=== PATIENT | male | born 1960 | race Caucasian/White ===

== ENCOUNTER 2018-05-24 09:34 | Inpatient (IN) ==
[2018-05-24 10:49] LABS: Baso # (Auto) 0.1 th/mm3 (0.0-0.2); Baso % (Auto) 0.8 % (0.0-2.0); Eos # (Auto) 0.2 th/mm3 (0.0-0.4); Eos % (Auto) 2.4 % (0.0-4.0); Hematocrit 43.5 % (39.0-51.0); Hemoglobin 14.8 gm/dL (13.0-17.0); Lymph # (Auto) 3.8 th/mm3 (1.0-4.8); Lymph % (Auto) 51.7 % (9.0-44.0); Mean Corpuscular HGB Conc 34.1 % (32.0-36.0); Mean Corpuscular Hemoglobin 31.8 pg (27.0-34.0); Mean Corpuscular Volume 93.1 fL (80.0-100.0); Mean Platelet Volume 8.5 fL (7.0-11.0); Mono # (Auto) 0.5 th/mm3 (0.0-0.9); Neut # (Auto) 2.8 th/mm3 (1.8-7.7); Neut % (Auto) 38.1 % (16.0-70.0); Platelet Count 91 th/mm3 (150-450); Red Blood Count 4.67 mil/mm3 (4.50-5.90); Red Cell Distribution Width 16.4 % (11.6-17.2); White Blood Count 7.3 th/mm3 (4.0-11.0)
--- NOTE | 2018-05-24 10:59 | ED ---
HPI General Chief Complaint: Psychiatric Symptoms Stated Complaint: psych eval Time Seen by Provider: 05/24/18 10:23 Source: patient Mode of arrival: ambulatory Limitations: altered mental status (INTOXICATED) History of Present Illness HPI Narrative: 57-year-old male presents to the emergency department under Balbuena act. According to the Balbuena act report the mother had advised that he woke up intoxicated stating that he did not want to live anymore and repeatedly stated he was going to commit suicide. On my examination the patient appears intoxicated. He states "Im an alcoholic." States his mother made the comments and he denies suicidal or homicidal ideations. Denies history of suicidal attempts. Denies auditory or visual hallucinations. There is a large bruise noted to his right upper arm and the patient does not know how he got it. Denies illicit drug use. Reports alcohol use daily. Reports tobacco use. Denies psychiatric history. Onset unknown. Duration most likely chronic. No known relieving or aggravating factors. No treatments tried. Symptoms are moderate to severe in severity. Says he has history of seizures related to alcohol withdrawal. Denies other significant past medical history. Says he has a primary care provider and does not know the name. Allergies to peanuts and phenobarbital. Has no other medical complaints. No other modifying factors or associated signs and symptoms. Related Data Home Medications Medication Instructions Recorded Confirmed buspirone 10 mg PO TID 05/24/18 05/24/18 desonide 1 applic TOPICAL DAILY 05/24/18 05/24/18 levetiracetam 750 mg PO BID 05/24/18 05/24/18 quetiapine 50 mg PO DAILY 05/24/18 05/24/18 sertraline 100 mg PO DAILY 05/24/18 05/24/18 Allergies Allergy/AdvReac Type Severity Reaction Status Date / Time ipratropium Allergy Severe Anaphylaxis Verified 05/24/18 11:06 phenobarbital Allergy Severe Anaphylaxis Verified 05/24/18 11:06 Review of Systems ROS: all other systems reviewed are negative [facility] Medical History Medical History Anxiety (Acute) COPD (chronic obstructive pulmonary disease) (Acute) Emphysema, unspecified (Acute) Social History Social History Substance History: No History of Abuse Second Hand Smoke Exposure: Yes Smoking Status: Current every day smoker Tobacco Type: Cigarettes How Often Do You Have a Drink Containing Alcohol: 4 or more times a week Recent Travel in [facility] within the Last 8 Weeks: No Recent Out of Country Travel within the Last 8 Weeks: No Immunization History Tetanus Immunization: Unsure Exam Narrative Exam Narrative: GENERAL: Well-nourished, well-developed male patient, in no acute distress; disheveled; appears intoxicated SKIN: Warm and dry. Large bruise noted to right bicep area; stage II-III. HEAD: Atraumatic. Normocephalic. EYES: Pupils equal and round. ENT: Mucosa pink and moist. NECK: Supple. Trachea midline. CARDIOVASCULAR: Regular rate and rhythm. No murmur appreciated. RESPIRATORY: No accessory muscle use. Clear to auscultation. Breath sounds equal bilaterally. GASTROINTESTINAL: Abdomen soft, non-tender, nondistended. Hepatic and splenic margins not palpable. Bowel sounds are active 4 quadrants. MUSCULOSKELETAL: No obvious deformities. No clubbing. No cyanosis. No edema. NEUROLOGICAL: Awake and alert. Oriented 2; self and president. No obvious cranial nerve deficits. Motor grossly within normal limits. Normal speech. Moves all extremities. 5/5 strength to all extremities. PSYCHIATRIC: No delusional thought processes. No hallucinations. Course Reevaluation(s) Reevaluation #1: I was notified by the nursing staff that the patient had a seizure. The nursing staff as overridden and had given him 2 mg of Ativan IV. Patient seizure had stopped. Patient is postictal. I reviewed the patient's chart. It appears that the patient has been here nearly 13 hours. His initial blood alcohol was 370. Patient has had a history of alcohol with alcohol withdrawal seizures. He is supposed to be on Keppra 750 mg twice daily. His evening dose of Keppra 750 mg has been ordered when he becomes more arousable. Patient is on a media monitor as well as O2. Time: 23:01 Initial Documented Vital Signs Temperature 98.1 F 05/24/18 09:52 Pulse Rate 119 H 05/24/18 09:52 Respiratory Rate 16 05/24/18 09:52 Blood Pressure 135/101 H 05/24/18 09:52 Pulse Oximetry 94 L 05/24/18 09:52 Last Documented Vital Signs Temperature 98.5 F 05/26/18 04:00 Pulse Rate 84 05/26/18 06:00 Respiratory Rate 20 05/26/18 06:00 Blood Pressure 158/77 H 05/26/18 06:00 Pulse Oximetry 96 05/26/18 06:00 Medical Decision Making MDM Narrative Medical decision making narrative: Patient presents under a Balbuena act. Physical examination and vital signs are essentially unremarkable. Patient has no medical complaints to report. Psych screen has been ordered. If the laboratory results are unremarkable, the patient will be medically cleared for psychiatric evaluation and disposition. 23:38 PM patient had a seizure episode in the emergency room. Most likely alcohol withdrawal seizure. CIWA protocol started., Patient was given Ativan. Patient will be admitted to the medical service with psychiatric consultation. Differential Diagnosis Differential Diagnosis: Alcohol induced mood disorder, alcohol abuse, alcohol intoxication, medical clearance for psychiatric evaluation Lab Data Lab results reviewed: Yes I reviewed the patient's lab results. Result diagrams: 05/24/18 10:00 05/24/18 10:00 Lab Results 05/24/18 05/24/18 05/24/18 Range/Units 10:00 10:00 10:00 WBC 7.3 (4.0-11.0) th/mm3 RBC 4.67 (4.50-5.90) mil/mm3 Hgb 14.8 (13.0-17.0) gm/dL Hct 43.5 (39.0-51.0) % MCV 93.1 (80.0-100.0) fL MCH 31.8 (27.0-34.0) pg MCHC 34.1 (32.0-36.0) % RDW 16.4 (11.6-17.2) % Plt Count 91 L (150-450) th/mm3 MPV 8.5 (7.0-11.0) fL Prelim Diff (Auto) Slide review pending Neut % (Auto) 38.1 (16.0-70.0) % Lymph % (Auto) 51.7 H (9.0-44.0) % [place] % (Auto) 7.0 (0.0-8.0) % Eos % (Auto) 2.4 (0.0-4.0) % Baso % (Auto) 0.8 (0.0-2.0) % Neut # (Auto) 2.8 (1.8-7.7) th/mm3 Lymph # (Auto) 3.8 (1.0-4.8) th/mm3 [place] # (Auto) 0.5 (0.0-0.9) th/mm3 Eos # (Auto) 0.2 (0.0-0.4) th/mm3 Baso # (Auto) 0.1 (0.0-0.2) th/mm3 WBC Differential . Diff Scan Auto diff confirmed Differential Comment . Platelet Estimate Low L (Normal) Platelet Morphology Enlarged H (Normal) Sodium 138 (136-145) meq/L Potassium 3.7 (3.5-5.1) meq/L Chloride 100 (98-107) meq/L Carbon Dioxide 22.4 (21.0-32.0) meq/L Anion Gap 16 H (5-15) meq/L BUN 9 (7-18) mg/dL Creatinine 0.73 (0.60-1.30) mg/dL Estimated GFR Greater than 89 (>89) mL/min Random Glucose 101 (74-106) mg/dL Calcium 9.0 (8.5-10.1) mg/dL Total Bilirubin 0.7 (0.2-1.0) mg/dL AST 267 H (15-37) U/L ALT 153 H (12-78) U/L Alkaline Phosphatase 94 (45-117) U/L Total Protein 9.3 H (6.4-8.2) g/dL Albumin 4.5 (3.4-5.0) g/dL TSH 1.110 (0.358-3.740) uIU/mL Nasal Screen MRSA (PCR) (Negative) Salicylates 5.7 (2.8-20.0) mg/dL Acetaminophen Less than 2.0 L (10.0-30.0) mcg/mL Serum Alcohol 370 H (0-5) mg/dL 05/25/18 Range/Units 02:00 WBC (4.0-11.0) th/mm3 RBC (4.50-5.90) mil/mm3 Hgb (13.0-17.0) gm/dL Hct (39.0-51.0) % MCV (80.0-100.0) fL MCH (27.0-34.0) pg MCHC (32.0-36.0) % RDW (11.6-17.2) % Plt Count (150-450) th/mm3 MPV (7.0-11.0) fL Prelim Diff (Auto) Neut % (Auto) (16.0-70.0) % Lymph % (Auto) (9.0-44.0) % [place] % (Auto) (0.0-8.0) % Eos % (Auto) (0.0-4.0) % Baso % (Auto) (0.0-2.0) % Neut # (Auto) (1.8-7.7) th/mm3 Lymph # (Auto) (1.0-4.8) th/mm3 [place] # (Auto) (0.0-0.9) th/mm3 Eos # (Auto) (0.0-0.4) th/mm3 Baso # (Auto) (0.0-0.2) th/mm3 WBC Differential Diff Scan Differential Comment Platelet Estimate (Normal) Platelet Morphology (Normal) Sodium (136-145) meq/L Potassium (3.5-5.1) meq/L Chloride (98-107) meq/L Carbon Dioxide (21.0-32.0) meq/L Anion Gap (5-15) meq/L BUN (7-18) mg/dL Creatinine (0.60-1.30) mg/dL Estimated GFR (>89) mL/min Random Glucose (74-106) mg/dL Calcium (8.5-10.1) mg/dL Total Bilirubin (0.2-1.0) mg/dL AST (15-37) U/L ALT (12-78) U/L Alkaline Phosphatase (45-117) U/L Total Protein (6.4-8.2) g/dL Albumin (3.4-5.0) g/dL TSH (0.358-3.740) uIU/mL Nasal Screen MRSA (PCR) Not detected (Negative) Salicylates (2.8-20.0) mg/dL Acetaminophen (10.0-30.0) mcg/mL Serum Alcohol (0-5) mg/dL Imaging Data Attestation: I personally reviewed and interpreted this imaging study as follows : Radiologist's impression: Head CT 05/24/18 10:33 CONCLUSION: 1. Right-sided shunt. 2. Encephalomalacia right temporal and parietal lobes. 3. No acute intracranial abnormality. . Discharge Plan Discharge Disposition Patient Disposition: 30 Still Patient Discharge Condition Condition: Stable Discharge Details Diagnosis: Seizure, Alcohol abuse Physicians Team ED Provider: Fidel Shields ED Midlevel Provider: Maryam Castillo Primary Care Provider: UNKNOWN, Attending Provider: Sal Valentin Other Providers: Richard Looney Status ED Status: Left Department Discharge Information Discharge Date/Time: 05/25/18 01:40
[2018-05-24 11:04] LABS: Albumin 4.5 g/dL (3.4-5.0); Anion Gap 16 meq/L (5-15); Blood Urea Nitrogen 9 mg/dL (7-18); Carbon Dioxide 22.4 meq/L (21.0-32.0); Chloride 100 meq/L (98-107); Glomerular Filtration Rate Greater Than 89 mL/min (>89); Glucose,Random 101 mg/dL (74-106); Potassium 3.7 meq/L (3.5-5.1); Sodium 138 meq/L (136-145)
[2018-05-24 11:05] LABS: Alanine Aminotransferase 153 U/L (12-78); Aspartate Aminotransferase 267 U/L (15-37)
--- NOTE | 2018-05-24 11:14 | CT ---
EXAM DATE: 05/24/2018 10:37 AM EDT AGE/SEX: 57 years / Male INDICATIONS: Altered mental status. CLINICAL DATA: This is the patient's initial encounter. Patient reports that signs and symptoms have been present for 1 day and indicates a pain score of Nonresponsive. MEDICAL/SURGICAL HISTORY: Chronic obstructive pulmonary disease. . Shunt RADIATION DOSE: 56.35 CTDI (mGy) COMPARISON: No prior exams available for comparison. TECHNIQUE: CT of the head without contrast. Using automated exposure control and adjustment of the mA and/or kV according to patient size, radiation dose was kept as low as reasonably achievable to ob tain optimal diagnostic quality images. DICOM format image data is available electronically for revi ew and comparison. FINDINGS: Cerebrum: Right-sided shunt coursing through the posterior lateral horn right lateral ventricle ekaterina cent to prominent cystic area. There is encephalomalacia in the right temporal and parietal lobes. dilatation of the posterior and temporal horns of the right lateral ventricle. No evidence of m idline shift, mass lesion, hemorrhage or acute infarction. No extraaxial fluid collections are seen. Posterior Fossa: The cerebellum and brainstem are intact. The 4th ventricle is midline. The cerebe llopontine angle is unremarkable. Extracranial: The visualized portion of the orbits is intact. Skull: The calvaria is intact. No evidence of skull fracture. CONCLUSION: 1. Right-sided shunt. 2. Encephalomalacia right temporal and parietal lobes. 3. No acute intracranial abnormality. . Electronically signed by: Roberto Carlos Maher MD 05/24/2018 11:13 AM EDT
[2018-05-24 11:16] LABS: Alkaline Phosphatase 94 U/L (45-117); Total Protein 9.3 g/dL (6.4-8.2)
[2018-05-24 11:17] LABS: Alcohol 370 mg/dL (0-5)
[2018-05-24] MEDS ORDERED: LORazepam 1 MG Tablet PO PRN (17:47)
[2018-05-24] MEDS ORDERED: Haloperidol Inj 5 MG/ML Ampul IV.PUSH PRN ×2 (17:47→23:07)
[2018-05-24] MEDS ORDERED: levETIRAcetam 500 MG Tablet PO ONE (23:05)
--- NOTE | 2018-05-25 01:13 | P.HP ---
History of Present Illness Service: [facility] Primary Care Physician: UNKNOWN History of Present Illness: 57-year-old male with a past medical history significant for alcohol abuse, anxiety, seizure disorder and COPD presents to the emergency department under Balbuena act for the evaluation of suicidal ideation. According to ED documentation, the patient's mother stated that he woke up intoxicated and said that he did not want to live anymore and repeatedly stated he was going to commit suicide. The patient reportedly had 2 seizures in the emergency department. He is status post treatment with Ativan and Keppra and is currently postictal and sleeping. He does not awaken to answer any of my questions. Inpatient Certification: I certify that the inpatient services were ordered in accordance with Medicare regulations governing the order. This includes certification that hospital inpatient services are reasonable and necessary and in the case of services not specified as inpatient-only under 42 CFR 419.22(n), that they are appropriately provided as inpatient services in accordance to with the 2-midnight benchmark under 43 CFR 412.3(e) Estimated Total Length of Stay (Days): 2 Plans for Post Hospital Care: Not yet determined Review of Systems unobtainable due to mental status PMFSH - History History Provided By: Patient - Medical History Medical History: Medical History (Last Updated 05/25/18 @ 01:06 by Tara Hernández MD) Anxiety COPD (chronic obstructive pulmonary disease) Emphysema, unspecified Seizure disorder - Surgical History Surgical History: Surgical History (Last Reviewed 05/25/18 @ 01:06 by Tara Hernández MD) History of brain shunt - Family History Family History: Family History (Last Updated 05/25/18 @ 01:06 by Tara Hernández MD) Other Family history unknown - Tobacco History Second Hand Smoke Exposure: Yes Tobacco Use In Past 30 Days: Yes (1PPD) Smoking Status: Current every day smoker Tobacco Type: Cigarettes - Alcohol History How Often Do You Have a Drink Containing Alcohol: 4 or more times a week - Substance Use History Substance History: No History of Abuse - Travel History Recent Travel in the [place] Within the Last 8 Weeks: No Recent Travel Out of the Country Within the Last 8 Weeks: No - Immunization History Tetanus Immunization: Unsure Medications and Allergies Active Medications: Active Medications Flumazenil (Romazecon Inj) 0.2 mg IV.PUSH Q1M PRN PRN Reason: OVERSEDATION Flumazenil (Romazecon Inj) 0.2 mg IV.PUSH Q1M PRN PRN Reason: OVERSEDATION Haloperidol Lactate (Haldol Inj) 1 mg IV.PUSH Q15M PRN PRN Reason: for severe agitation Haloperidol Lactate (Haldol Inj) 1 mg IV.PUSH Q15M PRN PRN Reason: for severe agitation Lorazepam (Ativan Inj) 1 mg IV.PUSH Q4H PRN PRN Reason: for CIWA 8-10 Lorazepam (Ativan Inj) 2 mg IV.PUSH Q15M PRN PRN Reason: for CIWA > 20 Lorazepam (Ativan Inj) 2 mg IV.PUSH Q1H PRN PRN Reason: for CIWA 15-20 Lorazepam (Ativan Inj) 2 mg IV.PUSH Q2H PRN PRN Reason: for CIWA 11-14 Lorazepam (Ativan) 1 mg PO Q4H PRN PRN Reason: for CIWA 8-10 Lorazepam (Ativan) 2 mg PO Q2H PRN PRN Reason: for CIWA 11-14 Last Admin: 05/24/18 18:10 Dose: 2 mg Lorazepam (Ativan Inj) 1 mg IV.PUSH Q4H PRN PRN Reason: for CIWA 8-10 Lorazepam (Ativan Inj) 2 mg IV.PUSH Q15M PRN PRN Reason: for CIWA > 20 Lorazepam (Ativan Inj) 2 mg IV.PUSH Q1H PRN PRN Reason: for CIWA 15-20 Last Admin: 05/24/18 23:47 Dose: 2 mg Lorazepam (Ativan Inj) 2 mg IV.PUSH Q2H PRN PRN Reason: for CIWA 11-14 Last Admin: 05/24/18 23:12 Dose: 2 mg Lorazepam (Ativan) 1 mg PO Q4H PRN PRN Reason: for CIWA 8-10 Lorazepam (Ativan) 2 mg PO Q2H PRN PRN Reason: for CIWA 11-14 Allergies Allergy/AdvReac Type Severity Reaction Status Date / Time ipratropium Allergy Severe Anaphylaxis Verified 05/24/18 11:06 phenobarbital Allergy Severe Anaphylaxis Verified 05/24/18 11:06 Home Medications Medication Instructions Recorded Confirmed Type buspirone 10 mg PO TID 05/24/18 05/24/18 History desonide 1 applic TOPICAL DAILY 10/10/18 10/10/18 History levetiracetam 750 mg PO BID 05/24/18 05/24/18 History quetiapine 50 mg PO DAILY 05/24/18 05/24/18 History sertraline 100 mg PO DAILY 05/24/18 05/24/18 History Exam Vital signs: Vital Signs 05/24/18 09:52 05/24/18 10:18 05/24/18 12:46 Temperature 98.1 F Pulse Rate 119 H 110 H 95 H Respiratory Rate 16 19 Blood Pressure 135/101 H 165/90 H Pulse Oximetry 94 L 97 05/24/18 17:34 05/24/18 23:06 05/25/18 00:31 Temperature 98.8 F Pulse Rate 107 H 109 H Respiratory Rate 18 20 18 Blood Pressure 137/93 H 173/77 H 157/82 H Pulse Oximetry 98 94 L Intake & Output 05/24/18 05/24/18 05/25/18 06:59 18:59 06:59 Weight 59.967 kg Narrative: Gen.: No acute distress. Patient lying in bed snoring. Does not awaken to sternal rub. Head: Normocephalic. Atraumatic. EENT: Pupils equal round and reactive to light. Nose without drainage. Airway intact. Throat without injection. Cardiovascular: Regular rate and rhythm. No murmurs, rubs or gallops. Respiratory: Lungs clear to auscultation bilaterally. No wheezes or rhonchi. Abdomen: Soft, nontender, nondistended. No peritoneal signs. Musculoskeletal: No gross deformities. No edema. Skin: No obvious rashes or erythema. Neuro: Unable to assess Results - Labs CBC & Chem 7: 05/24/18 10:00 05/24/18 10:00 Labs: Laboratory Results - last 24 hr 05/24/18 05/24/18 05/24/18 10:00 10:00 10:00 WBC 7.3 RBC 4.67 Hgb 14.8 Hct 43.5 MCV 93.1 MCH 31.8 MCHC 34.1 RDW 16.4 Plt Count 91 L MPV 8.5 Prelim Diff (Auto) Slide review pending Neut % (Auto) 38.1 Lymph % (Auto) 51.7 H [place] % (Auto) 7.0 Eos % (Auto) 2.4 Baso % (Auto) 0.8 Neut # (Auto) 2.8 Lymph # (Auto) 3.8 [place] # (Auto) 0.5 Eos # (Auto) 0.2 Baso # (Auto) 0.1 WBC Differential . Diff Scan Auto diff confirmed Differential Comment . Platelet Estimate Low L Platelet Morphology Enlarged H Sodium 138 Potassium 3.7 Chloride 100 Carbon Dioxide 22.4 Anion Gap 16 H BUN 9 Creatinine 0.73 Estimated GFR Greater than 89 Random Glucose 101 Calcium 9.0 Total Bilirubin 0.7 AST 267 H ALT 153 H Alkaline Phosphatase 94 Total Protein 9.3 H Albumin 4.5 TSH 1.110 Salicylates 5.7 Acetaminophen Less than 2.0 L Serum Alcohol 370 H - Imaging Impressions Head CT 05/24/18 10:33 CONCLUSION: 1. Right-sided shunt. 2. Encephalomalacia right temporal and parietal lobes. 3. No acute intracranial abnormality. . Caprini VTE Risk Assessment Caprini VTE Risk Assessment: No/Low Risk (score <= 1) Caprini Risk Assessment Model: Point Value = 1 Point Value = 2 Point Value = 3 Point Value = 5 Age 41-60 Minor surgery BMI > 25 kg/m2 Swollen legs Varicose veins or History of unexplained or recurrent spontaneous Oral contraceptives or hormone replacement Sepsis (< 1 month) Serious lung disease, including pneumonia (< 1 month) Abnormal pulmonary function Acute myocardial infarction Congestive heart failure (< 1 month) History of inflammatory bowel disease Medical patient at bed rest Age 61-74 Arthroscopic surgery Major open surgery (> 45 min) Laparoscopic surgery (> 45 min) Malignancy Confined to bed (> 72 hours) Immobilizing plaster cast Central venous access Age >= 75 History of VTE Family history of VTE Factor V Leiden Prothrombin [id number] Lupus anticoagulant Anticardiolipin antibodies Elevated serum homocysteine Heparin-induced thrombocytopenia Other congenital or acquired thrombophilia Stroke (< 1 month) Elective arthroplasty Hip, pelvis, or leg fracture Acute spinal cord injury (< 1 month) Prophylaxis Regimen: Total Risk Factor Score Risk Level Prophylaxis Regimen 0-1 Low Early ambulation 2 Moderate Order ONE of the following: *Sequential Compression Device (SCD) *Heparin 5000 units SQ BID 3-4 Higher Order ONE of the following medications: *Heparin 5000 units SQ TID *Enoxaparin/Lovenox 40 mg SQ daily (WT < 150 kg, CrCl > 30 mL/min) *Enoxaparin/Lovenox 30 mg SQ daily (WT < 150 kg, CrCl > 10-29 mL/min) *Enoxaparin/Lovenox 30 mg SQ BID (WT < 150 kg, CrCl > 30 mL/min) AND/OR *Sequential Compression Device (SCD) 5 or more Highest Order ONE of the following medications: *Heparin 5000 units SQ TID (Preferred with Epidurals) *Enoxaparin/Lovenox 40 mg SQ daily (WT < 150 kg, CrCl > 30 mL/min) *Enoxaparin/Lovenox 30 mg SQ daily (WT < 150 kg, CrCl > 10-29 mL/min) *Enoxaparin/Lovenox 30 mg SQ BID (WT < 150 kg, CrCl > 30 mL/min) AND *Sequential Compression Device (SCD) Assessment and Plan - Plan Assessment/plan: 1. Alcohol abuse/withdrawal seizure/seizure disorder Continue home Keppra Ativan as needed Seizure precautions CIWA protocol 2. Suicidal ideation Balbuena act Sitter Psychiatry consulted, appreciate recommendations 3. COPD Albuterol as needed FEN Regular diet Electrolytes: Monitor and replete as needed NS at 70 cc/hour
[2018-05-25] MEDS: Sod Chloride 0.9% Inj 1,000 ML IV.CONT SCH ×2 (01:28→17:06)
[2018-05-25] MEDS: Chlorhexidine Gluconate 2% 1 Pack (2 Cloths) TOPICAL SCH (02:43)
[2018-05-25] MEDS ORDERED: Chlorhexidine Gluconate 2% 1 Pack (2 Cloths) TOPICAL PRN (04:00)
[2018-05-25] MEDS: levETIRAcetam 500 MG Tablet PO SCH ×2 (08:08→20:23)
[2018-05-25] MEDS: QUEtiapine 25 MG Tablet PO SCH (08:09)
[2018-05-25] MEDS: Sertraline 100 MG Tablet PO SCH (08:12)
--- NOTE | 2018-05-25 08:42 | P.PNIM ---
Subjective Interval history: f/u; alcohol withdrawal/ suicidal ideation in no acute distress. but with hand tremors and somewhat anxious. denies pain. BP trend noted. mother at the bedside. d/w the RN. Physical Exam Vital signs: Vital Signs 05/24/18 09:52 05/24/18 10:18 05/24/18 12:46 Temperature 98.1 F Pulse Rate 119 H 110 H 95 H Respiratory Rate 16 19 Blood Pressure 135/101 H 165/90 H Pulse Oximetry 94 L 97 05/24/18 17:34 05/24/18 23:06 05/25/18 00:31 Temperature 98.8 F Pulse Rate 107 H 109 H Respiratory Rate 18 20 18 Blood Pressure 137/93 H 173/77 H 157/82 H Pulse Oximetry 98 94 L 05/25/18 02:00 05/25/18 02:01 05/25/18 02:20 Temperature Pulse Rate 102 H 107 H 103 H Respiratory Rate 28 H 20 Blood Pressure 180/91 H 167/81 H Pulse Oximetry 90 L 94 L 05/25/18 03:00 05/25/18 03:02 05/25/18 04:00 Temperature 99.6 F Pulse Rate 120 H 113 H 110 H Respiratory Rate 22 27 H 23 Blood Pressure 203/99 H 173/73 H 166/77 H Pulse Oximetry 92 L 93 L 96 05/25/18 05:00 05/25/18 06:00 05/25/18 06:01 Temperature Pulse Rate 105 H 97 H 97 H Respiratory Rate 32 H 27 H 21 Blood Pressure 151/84 H 187/84 H Pulse Oximetry 97 Intake & Output 05/24/18 05/25/18 05/25/18 18:59 06:59 18:59 Intake Total 480 / 480 Output Total 135 / 135 Balance 345 / 345 Weight 59.967 kg 63 kg Intake: Oral 480 / 480 Output: Urine 135 / 135 Other: Date of Last Bowel Movement 05/25/18 # Bowel Movements 1 Weight On Admission 64 kg - Constitutional no acute distress - Routine Respiratory Exam Present: CTA bilaterally - Routine Cardiovascular Exam Present: RRR - Routine Abdominal Exam Present: soft - Routine Extremities Exam Comments: no pedal edema. - Routine Neurological Exam Present: alert, oriented X3, tremors Results - Labs CBC & Chem 7: 05/24/18 10:00 10/10/18 10:00 Laboratory Results - last 24 hr 05/24/18 05/24/18 05/24/18 10:00 10:00 10:00 WBC 7.3 RBC 4.67 Hgb 14.8 Hct 43.5 MCV 93.1 MCH 31.8 MCHC 34.1 RDW 16.4 Plt Count 91 L MPV 8.5 Prelim Diff (Auto) Slide review pending Neut % (Auto) 38.1 Lymph % (Auto) 51.7 H [place] % (Auto) 7.0 Eos % (Auto) 2.4 Baso % (Auto) 0.8 Neut # (Auto) 2.8 Lymph # (Auto) 3.8 [place] # (Auto) 0.5 Eos # (Auto) 0.2 Baso # (Auto) 0.1 WBC Differential . Diff Scan Auto diff confirmed Differential Comment . Platelet Estimate Low L Platelet Morphology Enlarged H Sodium 138 Potassium 3.7 Chloride 100 Carbon Dioxide 22.4 Anion Gap 16 H BUN 9 Creatinine 0.73 Estimated GFR Greater than 89 Random Glucose 101 Calcium 9.0 Total Bilirubin 0.7 AST 267 H ALT 153 H Alkaline Phosphatase 94 Total Protein 9.3 H Albumin 4.5 TSH 1.110 Nasal Screen MRSA (PCR) Salicylates 5.7 Acetaminophen Less than 2.0 L Serum Alcohol 370 H 05/25/18 02:00 WBC RBC Hgb Hct MCV MCH MCHC RDW Plt Count MPV Prelim Diff (Auto) Neut % (Auto) Lymph % (Auto) [place] % (Auto) Eos % (Auto) Baso % (Auto) Neut # (Auto) Lymph # (Auto) [place] # (Auto) Eos # (Auto) Baso # (Auto) WBC Differential Diff Scan Differential Comment Platelet Estimate Platelet Morphology Sodium Potassium Chloride Carbon Dioxide Anion Gap BUN Creatinine Estimated GFR Random Glucose Calcium Total Bilirubin AST ALT Alkaline Phosphatase Total Protein Albumin TSH Nasal Screen MRSA (PCR) Not detected Salicylates Acetaminophen Serum Alcohol - Imaging Impressions Head CT 05/24/18 10:33 CONCLUSION: 1. Right-sided shunt. 2. Encephalomalacia right temporal and parietal lobes. 3. No acute intracranial abnormality. . Assessment and Plan - Plan 1. Alcohol abuse/withdrawal seizure/seizure disorder Continue home Keppra Ativan as needed Seizure precautions CIWA protocol start on multivitamin/thiamine 2. Suicidal ideation Balbuena act Sitter Psychiatry consulted, appreciate recommendations 3. COPD Albuterol as needed 4.elevated LFT's- due to alcohol- will monitor 5.thrombocytopenia- due to alcohol- will monitor 6- elevated BP's - due to alcohol withdrawal; start on Clonidine prn- continue to monitor. FEN Regular diet Electrolytes: Monitor and replete as needed NS at 70 cc/hour
[2018-05-25] MEDS ORDERED: Non-Formulary Drug (Quetiapine [Quetiapine] 50 MG) PO SCH (09:00)
--- NOTE | 2018-05-25 17:26 | P.CONPSY ---
Provisional Diagnosis Admission Date: May 24, 2018 23:53 [place] I.: Alcohol abuse with intoxication, alcohol induced mood disorder History of Present Illness Service: Psychiatry Consult date: 05/25/18 Requesting Physician: Sal Valentin Reason for Consult: Esha act Primary Care Provider: UNKNOWN History of Present Illness: Patient is a 57-year-old male comes here under Balbuena act to being called by patient's mother patient appears was intoxicated and called his mother saying he was suicidal and wanted to kill himself. Patient seen screen in the emergency department blood alcohol level of 370. Patient had seizures in the ED was transferred to the intensive care unit. Patient has a history of chronic alcohol abuse acknowledges being a daily drinker drinking in the morning history of passing out. He drinks vodka up to 1.75 L plus per day. He denies prior detox or rehab. Though he has had a history of withdrawal issues his seizure disorder secondary to that. He is vague about any other legal issues with this. Patient also sees Dr. Deshawn Wakefield for mental health issues he is on various psychotropics including Seroquel Zoloft and BuSpar. He also sees a neurologist. 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 He is and has no children. He lives alone with a pet dog close to his mother. Who was quite concerned and caregiving with him. At the present time patient denies suicidality homicidality voice or visions. He is oriented to himself to place and location though he is somewhat confused as to the year or the month of the date. At this time patient does not meet Balbuena criteria lift Balbuena act. I did talk with mother about alternatives. She is aware of the act she states she has tried that in the past. It is okay by psych for discharge when he is medically clear and stable he may follow up with Dr. Wakefield no recommendations for medication by me thanks for consult I will sign off at the present time [facility] - History History Provided By: Patient, Family Member - Medical History Medical History: Medical History (Last Reviewed 05/25/18 @ 17:30 by Richard Looney MD) Anxiety COPD (chronic obstructive pulmonary disease) Emphysema, unspecified Seizure disorder - Surgical History Surgical History: Surgical History (Last Reviewed 05/25/18 @ 17:30 by Richard Looney MD) History of brain shunt - Family History Family History: Family History (Last Reviewed 05/25/18 @ 17:30 by Richard Looney MD) Other Family history unknown - Social History I have reviewed the patient's Social History: Yes - Tobacco History Second Hand Smoke Exposure: Yes Tobacco Use In Past 30 Days: Yes (1PPD) Smoking Status: Current every day smoker Tobacco Type: Cigarettes - Alcohol History How Often Do You Have a Drink Containing Alcohol: 4 or more times a week - Substance Use History Substance History: No History of Abuse - Travel History Recent Travel in the [place] Within the Last 8 Weeks: No Recent Travel Out of the Country Within the Last 8 Weeks: No - Immunization History Tetanus Immunization: Unsure Medications and Allergies Active Medications: Active Medications Albuterol (Albuterol Neb (Prn)) 2.5 mg NEB Q4HR NEB PRN PRN Reason: SOB/Wheezing Buspirone HCl (Buspar) 10 mg PO TID [facility] Last Admin: 05/25/18 13:00 Dose: 10 mg Chlorhexidine Gluconate (Chlorhexidine 2% Cloth) 3 pack TOPICAL DAILY@0400 [facility] Stop: 05/30/18 03:59 Last Admin: 05/25/18 02:43 Dose: 3 pack Chlorhexidine Gluconate (Chlorhexidine 2% Cloth) 3 pack TOPICAL DAILY@0400 PRN PRN Reason: Extra cloth needed Stop: 05/30/18 03:59 Clonidine HCl (Catapres) 0.1 mg PO Q6H PRN PRN Reason: SBP>180 or DBP> 100 Flumazenil (Romazecon Inj) 0.2 mg IV.PUSH Q1M PRN PRN Reason: OVERSEDATION Haloperidol Lactate (Haldol Inj) 1 mg IV.PUSH Q15M PRN PRN Reason: for severe agitation Sodium Chloride (Ns Inj) 1,000 mls @ 70 mls/hr IV.CONT .[id number] [facility] Last Admin: 05/25/18 17:06 Dose: 70 mls/hr Levetiracetam (Keppra) 750 mg PO BID [facility] Last Admin: 05/25/18 08:08 Dose: 750 mg Lorazepam (Ativan Inj) 1 mg IV.PUSH Q4H PRN PRN Reason: for CIWA 8-10 Lorazepam (Ativan Inj) 2 mg IV.PUSH Q15M PRN PRN Reason: for CIWA > 20 Last Admin: 05/25/18 11:14 Dose: 2 mg Lorazepam (Ativan Inj) 2 mg IV.PUSH Q1H PRN PRN Reason: for CIWA 15-20 Last Admin: 05/24/18 23:47 Dose: 2 mg Lorazepam (Ativan Inj) 2 mg IV.PUSH Q2H PRN PRN Reason: for CIWA 11-14 Last Admin: 05/24/18 23:12 Dose: 2 mg Lorazepam (Ativan) 1 mg PO Q4H PRN PRN Reason: for CIWA 8-10 Lorazepam (Ativan) 2 mg PO Q2H PRN PRN Reason: for CIWA 11-14 Lorazepam (Ativan Inj) 1 mg IV.PUSH Q15M PRN PRN Reason: seizure Miscellaneous (Pill Splitter) 1 each OTHER PRN [facility] Multivitamins (Theragran) 1 tab PO DAILY [facility] Last Admin: 05/25/18 11:14 Dose: 1 tab Ondansetron HCl (Zofran Inj) 4 mg IV.PUSH Q6H PRN PRN Reason: NAUSEA OR VOMITING Quetiapine Fumarate (Seroquel) 50 mg PO DAILY [facility] Last Admin: 05/25/18 08:09 Dose: 50 mg Sertraline HCl (Zoloft) 100 mg PO DAILY [facility] Last Admin: 05/25/18 08:12 Dose: 100 mg Thiamine HCl (Vitamin B1) 100 mg PO DAILY [facility] Last Admin: 05/25/18 11:14 Dose: 100 mg Allergies Allergy/AdvReac Type Severity Reaction Status Date / Time ipratropium Allergy Severe Anaphylaxis Verified 05/24/18 11:06 phenobarbital Allergy Severe Anaphylaxis Verified 05/24/18 11:06 Home Medications Medication Instructions Recorded Confirmed Type buspirone 10 mg PO TID 05/24/18 05/24/18 History desonide 1 applic TOPICAL DAILY 05/24/18 05/24/18 History levetiracetam 750 mg PO BID 05/24/18 05/24/18 History quetiapine 50 mg PO DAILY 05/24/18 05/24/18 History sertraline 100 mg PO DAILY 05/24/18 05/24/18 History Exam Vital signs: Vital Signs 05/24/18 17:34 05/24/18 23:06 05/25/18 00:31 Temperature 98.8 F Pulse Rate 107 H 109 H Respiratory Rate 18 20 18 Blood Pressure 137/93 H 173/77 H 157/82 H Pulse Oximetry 98 94 L 05/25/18 02:00 05/25/18 02:01 05/25/18 02:20 Temperature Pulse Rate 102 H 107 H 103 H Respiratory Rate 28 H 20 Blood Pressure 180/91 H 167/81 H Pulse Oximetry 90 L 94 L 05/25/18 03:00 05/25/18 03:02 05/25/18 04:00 Temperature 99.6 F Pulse Rate 120 H 113 H 110 H Respiratory Rate 22 27 H 23 Blood Pressure 203/99 H 173/73 H 166/77 H Pulse Oximetry 92 L 93 L 96 05/25/18 05:00 05/25/18 06:00 05/25/18 06:01 Temperature Pulse Rate 105 H 97 H 97 H Respiratory Rate 32 H 27 H 21 Blood Pressure 151/84 H 187/84 H Pulse Oximetry 97 05/25/18 08:00 05/25/18 09:04 05/25/18 10:00 Temperature 99.9 F H Pulse Rate 90 90 Respiratory Rate 22 Blood Pressure 136/88 Pulse Oximetry 96 94 L 05/25/18 12:00 05/25/18 14:00 05/25/18 16:00 Temperature 99 F 98.9 F Pulse Rate 111 H 85 89 Respiratory Rate 20 24 Blood Pressure 131/60 147/79 H Pulse Oximetry 96 96 Intake & Output 05/24/18 05/25/18 05/25/18 18:59 06:59 18:59 Intake Total 480 / 480 1000 / 1000 Output Total 135 / 135 Balance 345 / 345 1000 / 1000 Weight 59.967 kg 63 kg Intake: IV 1000 / 1000 NS Inj 1,000 ML @ 70 mls/hr IV. 1000 / 1000 CONT .[id number] [facility] Rx#:[id number] Oral 480 / 480 Output: Urine 135 / 135 Other: Date of Last Bowel Movement 05/25/18 05/25/18 # Bowel Movements 1 Weight On Admission 64 kg Narrative: Please see MedSurg assessments Mental Status Examination Appearance: Appropriate, Disheveled Consciousness: Alert (Mildly) Orientation: Person, Place, Situation Motor Activity: Other (Patient laying in bed) Speech: Unremarkable ( the moving all 4 extremities) Language: Adequate Fund of Knowledge: Inadequate Attention and Concentration: Adequate (Fair) Memory: Unremarkable (Fair) Mood: Other (Euthymic to somewhat restricted) Affect: Other (Decreased range and intensity) Thought Process & Associations: Intact Thought Content: Appropriate Hallucination Type: None Delusion Type: None Suicidal Ideation: No Suicidal Plan: No Suicidal Intention: No Homicidal Ideation: No Homicidal Plan: No Homicidal Intention: No Insight: Poor Judgment: Poor Assessment and Plan - Assessment (1) Alcohol abuse with intoxication Code(s): F10.129 - Alcohol abuse with intoxication, unspecified Status: Acute (2) Alcohol-induced mood disorder Code(s): F10.94 - Alcohol use, unspecified with alcohol-induced mood disorder Status: Acute - Plan Plan: Estimated LOS: [] days Patient does not meet Balbuena criteria at this time this I will lift Balbuena act. Is okay by psych for discharge when patient medically clear and stable, would recommend he continue his own psychotropic medications and follow-up with Dr. Deshawn Wakefield. Would suggest mother consider doing a Marchman act on this gentleman also strong referral to AA meetings strong referral absolute sobriety next the consult will sign off the present time Justification for Continued In[facility] Stay: [facility] and [facility]
[2018-05-26] MEDS: Chlorhexidine Gluconate 2% 1 Pack (2 Cloths) TOPICAL SCH ×2 (04:54→04:55)
[2018-05-26] MEDS: Sod Chloride 0.9% Inj 1,000 ML IV.CONT SCH ×2 (07:31→20:16)
[2018-05-26] MEDS: Sertraline 100 MG Tablet PO SCH (08:07)
[2018-05-26] MEDS: levETIRAcetam 500 MG Tablet PO SCH ×2 (08:07→20:16)
[2018-05-26] MEDS: QUEtiapine 25 MG Tablet PO SCH (08:07)
--- NOTE | 2018-05-26 08:12 | P.PNIM ---
Subjective Interval history: f/u; alcohol withdrawal in no acute distress. noted that he's still on restraints. awake and alert. denies pain. d/w the RN and no acute issues over night. Physical Exam Vital signs: Vital Signs 05/25/18 09:00 05/25/18 09:04 05/25/18 10:00 Temperature Pulse Rate 87 90 Respiratory Rate 23 33 H Blood Pressure 157/82 H 148/76 H Pulse Oximetry 98 94 L 100 05/25/18 11:00 05/25/18 11:01 05/25/18 12:00 Temperature 99 F Pulse Rate 108 H 112 H 111 H Respiratory Rate 47 H 26 H 21 Blood Pressure 142/68 H 131/60 Pulse Oximetry 96 96 80 L 05/25/18 13:00 05/25/18 14:00 05/25/18 15:00 Temperature Pulse Rate 92 H 85 89 Respiratory Rate 16 13 18 Blood Pressure 147/70 H 147/71 H 147/79 H Pulse Oximetry 96 100 88 L 05/25/18 16:00 05/25/18 17:00 05/25/18 18:00 Temperature 98.9 F Pulse Rate 95 H 94 H 99 H Respiratory Rate 21 23 24 Blood Pressure 153/75 H 143/74 H 135/71 Pulse Oximetry 77 L 98 87 L 05/25/18 19:00 05/25/18 19:20 05/25/18 20:00 Temperature 98.6 F Pulse Rate 76 98 H Respiratory Rate 19 32 H Blood Pressure 150/71 H 173/82 H Pulse Oximetry 92 L 100 92 L 05/25/18 21:00 05/25/18 22:00 05/25/18 22:01 Temperature Pulse Rate 85 95 H 93 H Respiratory Rate 19 23 27 H Blood Pressure 174/92 H 189/71 H Pulse Oximetry 97 95 96 05/25/18 23:00 05/25/18 23:01 05/26/18 00:00 Temperature Pulse Rate 86 88 85 Respiratory Rate 23 Blood Pressure 108/69 Pulse Oximetry 96 96 96 05/26/18 00:01 05/26/18 01:00 05/26/18 01:28 Temperature 98.0 F Pulse Rate 93 H 78 80 Respiratory Rate Blood Pressure 167/69 H 172/74 H 179/72 H Pulse Oximetry 97 97 97 05/26/18 01:53 05/26/18 02:00 05/26/18 03:00 Temperature Pulse Rate 79 82 92 H Respiratory Rate 17 15 28 H Blood Pressure 164/83 H 158/85 H 159/85 H Pulse Oximetry 97 98 96 05/26/18 04:00 05/26/18 04:34 05/26/18 05:00 Temperature 98.5 F Pulse Rate 83 96 H 80 Respiratory Rate 16 25 H 15 Blood Pressure 163/120 H 165/91 H 157/77 H Pulse Oximetry 96 95 96 05/26/18 06:00 Temperature Pulse Rate 84 Respiratory Rate 20 Blood Pressure 158/77 H Pulse Oximetry 96 Intake & Output 05/25/18 05/26/18 05/26/18 18:59 06:59 18:59 Intake Total 1000 / 1000 0 / 0 1000 / 1000 Output Total 1125 / 1125 Balance 1000 / 1000 -1125 / -1125 1000 / 1000 Weight 64.5 kg Intake: IV 1000 / 1000 1000 / 1000 NS Inj 1,000 ML @ 70 mls/hr IV. 1000 / 1000 1000 / 1000 CONT .[id number] [facility] Rx#:[id number] Oral 0 / 0 Output: Urine 1125 / 1125 Other: Date of Last Bowel Movement 05/25/18 05/25/18 # Bowel Movements 2 - Constitutional no acute distress - Routine Respiratory Exam Present: CTA bilaterally - Routine Cardiovascular Exam Present: RRR - Routine Abdominal Exam Present: soft - Routine Extremities Exam Comments: no pedal edema. - Routine Neurological Exam Present: alert (oriented to person, place and partly to time.) Results - Labs CBC & Chem 7: 05/24/18 10:00 05/24/18 10:00 Assessment and Plan - Plan 1. Alcohol abuse/withdrawal seizure/seizure disorder Continue home Keppra Ativan as needed Seizure precautions CIWA protocol continue multivitamin/thiamine counselled on drinking cessation 2. Suicidal ideation Psychiatry consulted; cleared by psych- anderson act lifted. 3. COPD Albuterol as needed 4.elevated LFT's- due to alcohol- will monitor 5.thrombocytopenia- due to alcohol- will monitor 6- elevated BP's - due to alcohol withdrawal; continue Clonidine prn- continue to monitor. FEN Regular diet Electrolytes: Monitor and replete as needed NS at 70 cc/hour consult PT. transfer to floor within the next 24 hrs if stable.
[2018-05-26 08:21] LABS: Baso % (Auto) 0.5 % (0.0-2.0); Eos # (Auto) 0.1 th/mm3 (0.0-0.4); Eos % (Auto) 2.1 % (0.0-4.0); Hematocrit 36.1 % (39.0-51.0); Hemoglobin 12.3 gm/dL (13.0-17.0); Lymph # (Auto) 1.1 th/mm3 (1.0-4.8); Lymph % (Auto) 19.7 % (9.0-44.0); Mean Corpuscular HGB Conc 34.2 % (32.0-36.0); Mean Corpuscular Hemoglobin 31.5 pg (27.0-34.0); Mean Corpuscular Volume 92.1 fL (80.0-100.0); Mean Platelet Volume 9.9 fL (7.0-11.0); Mono # (Auto) 0.3 th/mm3 (0.0-0.9); Mono % (Auto) 5.2 % (0.0-8.0); Neut % (Auto) 72.5 % (16.0-70.0); Platelet Count 67 th/mm3 (150-450); Red Blood Count 3.92 mil/mm3 (4.50-5.90); Red Cell Distribution Width 15.5 % (11.6-17.2); White Blood Count 5.5 th/mm3 (4.0-11.0)
[2018-05-26 08:40] LABS: Albumin 3.6 g/dL (3.4-5.0); Anion Gap 12 meq/L (5-15); Blood Urea Nitrogen 11 mg/dL (7-18); Calcium 8.4 mg/dL (8.5-10.1); Carbon Dioxide 25.6 meq/L (21.0-32.0); Chloride 102 meq/L (98-107); Glucose,Random 78 mg/dL (74-106); Potassium 3.4 meq/L (3.5-5.1); Sodium 140 meq/L (136-145)
[2018-05-26 08:54] LABS: Alanine Aminotransferase 215 U/L (12-78); Alkaline Phosphatase 92 U/L (45-117); Aspartate Aminotransferase 542 U/L (15-37); Glomerular Filtration Rate Greater Than 89 mL/min (>89); Total Protein 7.5 g/dL (6.4-8.2)
[2018-05-27] MEDS: Chlorhexidine Gluconate 2% 1 Pack (2 Cloths) TOPICAL SCH (04:17)
[2018-05-27 06:23] LABS: Alanine Aminotransferase 295 U/L (12-78); Albumin 3.7 g/dL (3.4-5.0); Anion Gap 13 meq/L (5-15); Aspartate Aminotransferase 484 U/L (15-37); Blood Urea Nitrogen 9 mg/dL (7-18); Calcium 8.7 mg/dL (8.5-10.1); Carbon Dioxide 26.4 meq/L (21.0-32.0); Chloride 101 meq/L (98-107); Glomerular Filtration Rate Greater Than 89 mL/min (>89); Glucose,Random 87 mg/dL (74-106); Potassium 3.5 meq/L (3.5-5.1); Sodium 140 meq/L (136-145)
[2018-05-27 06:25] LABS: Alkaline Phosphatase 109 U/L (45-117); Total Protein 8.1 g/dL (6.4-8.2)
--- NOTE | 2018-05-27 07:44 | P.DCO ---
- Physical Therapy Order: Evaluate and treat - Home Health Nursing Order: Medical education, Signs/symptoms of disease process, Nursing assessment with vital signs - Case Management Consult Yes - Certification I have seen patient William Green on 05/27/18. My clinical findings support the need for the requested home health care services because: Limited mobility due to disease progression I certify that my clinical findings support that this patient is homebound because: Unsteady gait/balance
--- NOTE | 2018-05-27 07:44 | P.PNIM ---
Subjective Interval history: f/u; alcohol withdrawal in no acute distress. looks and feels better today. denies pain. off restraints this morning. d/w the RN and no acute issues over night. Physical Exam Vital signs: Vital Signs 05/26/18 08:00 05/26/18 09:00 05/26/18 09:36 Temperature 98.2 F Pulse Rate 83 83 Respiratory Rate 16 13 Blood Pressure 163/79 H 170/82 H Pulse Oximetry 95 97 95 05/26/18 09:44 05/26/18 10:00 05/26/18 10:01 Temperature Pulse Rate 84 84 84 Respiratory Rate 14 14 14 Blood Pressure 137/70 169/84 H Pulse Oximetry 94 L 95 95 05/26/18 10:02 05/26/18 11:00 05/26/18 12:00 Temperature 97.9 F Pulse Rate 84 85 84 Respiratory Rate 16 15 14 Blood Pressure 178/92 H 150/90 H 145/77 H Pulse Oximetry 92 L 95 95 05/26/18 13:00 05/26/18 14:00 05/26/18 15:00 Temperature Pulse Rate 87 99 H 97 H Respiratory Rate 17 15 15 Blood Pressure 131/73 140/73 Pulse Oximetry 96 93 L 95 05/26/18 16:00 05/26/18 17:00 05/26/18 18:00 Temperature 98 F Pulse Rate 105 H 97 H 96 H Respiratory Rate 18 16 19 Blood Pressure 140/74 146/72 H Pulse Oximetry 94 L 93 L 95 05/26/18 18:01 05/26/18 19:00 05/26/18 19:12 Temperature Pulse Rate 100 H 97 H Respiratory Rate 23 18 Blood Pressure 145/76 H 140/84 Pulse Oximetry 95 95 95 05/26/18 20:00 05/26/18 20:04 05/26/18 21:00 Temperature 98.4 F Pulse Rate 84 94 H 102 H Respiratory Rate 21 23 Blood Pressure Pulse Oximetry 95 96 05/26/18 21:20 05/26/18 22:00 05/26/18 23:00 Temperature Pulse Rate 81 82 77 Respiratory Rate 13 17 16 Blood Pressure 143/82 H 145/80 H 156/81 H Pulse Oximetry 96 96 94 L 05/27/18 00:00 05/27/18 01:00 05/27/18 02:00 Temperature 98.4 F Pulse Rate 81 88 81 Respiratory Rate 23 20 19 Blood Pressure Pulse Oximetry 97 95 92 L 05/27/18 03:00 05/27/18 04:00 05/27/18 06:00 Temperature 98 F Pulse Rate 91 H 75 78 Respiratory Rate 18 14 Blood Pressure 163/87 H Pulse Oximetry 99 99 Intake & Output 05/26/18 05/27/18 05/27/18 18:59 06:59 18:59 Intake Total 1800 / 1800 1480 / 1480 Output Total 800 / 800 1500 / 1500 Balance 1000 / 1000 -20 / -20 Weight 62.5 kg Intake: IV 1000 / 1000 1000 / 1000 NS Inj 1,000 ML @ 70 mls/hr IV. 1000 / 1000 1000 / 1000 CONT .[id number] [facility] Rx#:[id number] Oral 800 / 800 480 / 480 Output: Urine 800 / 800 1500 / 1500 Other: Date of Last Bowel Movement 05/25/18 05/26/18 # Bowel Movements 1 0 - Constitutional no acute distress - Routine Respiratory Exam Present: CTA bilaterally - Routine Cardiovascular Exam Present: RRR - Routine Abdominal Exam Present: soft - Routine Extremities Exam Comments: no pedal edema. - Routine Neurological Exam Present: alert Results - Labs CBC & Chem 7: 05/26/18 05:43 05/27/18 04:49 Laboratory Results - last 24 hr 05/26/18 05/26/18 05/27/18 05:43 05:43 04:49 WBC 5.5 RBC 3.92 L Hgb 12.3 L D Hct 36.1 L MCV 92.1 MCH 31.5 MCHC 34.2 RDW 15.5 Plt Count 67 L MPV 9.9 Prelim Diff (Auto) Slide review pending Neut % (Auto) 72.5 H Lymph % (Auto) 19.7 Nicholas % (Auto) 5.2 Eos % (Auto) 2.1 Baso % (Auto) 0.5 Neut # (Auto) 4.0 Lymph # (Auto) 1.1 Nicholas # (Auto) 0.3 Eos # (Auto) 0.1 Baso # (Auto) 0.0 WBC Differential . Diff Scan Auto diff confirmed Differential Comment . Platelet Estimate Low L Platelet Morphology Enlarged H Sodium 140 140 Potassium 3.4 L 3.5 Chloride 102 101 Carbon Dioxide 25.6 26.4 Anion Gap 12 13 BUN 11 9 Creatinine 0.63 0.64 Estimated GFR Greater than 89 Greater than 89 Random Glucose 78 87 Calcium 8.4 L 8.7 Total Bilirubin 1.3 H 1.2 H AST 542 H 484 H ALT 215 H 295 H Alkaline Phosphatase 92 109 Total Protein 7.5 D 8.1 D Albumin 3.6 D 3.7 Assessment and Plan - Plan 1. Alcohol withdrawal seizure/seizure disorder- clinically improving. Continue home Keppra Ativan as needed Seizure precautions CIWA protocol continue multivitamin/thiamine counselled on drinking cessation 2. Suicidal ideation Psychiatry consulted; cleared by psych- anderson act lifted. 3. COPD Albuterol as needed 4.elevated LFT's- due to alcohol- improved- will monitor 5.thrombocytopenia- due to alcohol- will monitor 6- elevated BP's - due to alcohol withdrawal; continue Clonidine prn- continue to monitor. FEN Regular diet Electrolytes: Monitor and replete as needed NS at 70 cc/hour consulted PT. transfer to floor . Discharge Planning: [facility]- when stable.
[2018-05-27] MEDS: levETIRAcetam 500 MG Tablet PO SCH ×2 (08:50→20:46)
[2018-05-27] MEDS: Sertraline 100 MG Tablet PO SCH (08:51)
[2018-05-27] MEDS: QUEtiapine 25 MG Tablet PO SCH (08:51)
[2018-05-27] MEDS: LORazepam 1 MG Tablet PO PRN ×2 (15:59→20:46)
[2018-05-27] MEDS: Sod Chloride 0.9% Inj 1,000 ML IV.CONT SCH (17:00)
[2018-05-28] MEDS: Chlorhexidine Gluconate 2% 1 Pack (2 Cloths) TOPICAL SCH (06:43)
[2018-05-28 07:43] LABS: Baso % (Auto) 0.5 % (0.0-2.0); Eos # (Auto) 0.2 th/mm3 (0.0-0.4); Eos % (Auto) 2.8 % (0.0-4.0); Hematocrit 40.1 % (39.0-51.0); Lymph # (Auto) 1.7 th/mm3 (1.0-4.8); Lymph % (Auto) 22.1 % (9.0-44.0); Mean Corpuscular HGB Conc 34.8 % (32.0-36.0); Mean Corpuscular Hemoglobin 32.3 pg (27.0-34.0); Mean Platelet Volume 8.7 fL (7.0-11.0); Mono # (Auto) 0.8 th/mm3 (0.0-0.9); Mono % (Auto) 9.8 % (0.0-8.0); Neut # (Auto) 5.1 th/mm3 (1.8-7.7); Neut % (Auto) 64.8 % (16.0-70.0); Platelet Count 146 th/mm3 (150-450); Red Blood Count 4.32 mil/mm3 (4.50-5.90); Red Cell Distribution Width 15.6 % (11.6-17.2); White Blood Count 7.9 th/mm3 (4.0-11.0)
[2018-05-28] MEDS: Sertraline 100 MG Tablet PO SCH (08:22)
[2018-05-28] MEDS: levETIRAcetam 500 MG Tablet PO SCH (08:22)
[2018-05-28] MEDS: QUEtiapine 25 MG Tablet PO SCH (08:22)
[2018-05-28 08:30] LABS: Alanine Aminotransferase 237 U/L (12-78); Alkaline Phosphatase 113 U/L (45-117); Anion Gap 10 meq/L (5-15); Aspartate Aminotransferase 200 U/L (15-37); Blood Urea Nitrogen 14 mg/dL (7-18); Calcium 9.6 mg/dL (8.5-10.1); Carbon Dioxide 25.5 meq/L (21.0-32.0); Chloride 102 meq/L (98-107); Glomerular Filtration Rate Greater Than 89 mL/min (>89); Glucose,Random 101 mg/dL (74-106); Potassium 3.4 meq/L (3.5-5.1); Sodium 137 meq/L (136-145); Total Protein 8.7 g/dL (6.4-8.2)
--- NOTE | 2018-05-28 11:22 | P.DS ---
Date of admission: 05/24/18 23:53 Primary care physician: UNKNOWN Attending physician on discharge: Fidel Elizalde Anticipated date of discharge: 05/28/18 Brief History from admission: 57-year-old male with a past medical history significant for alcohol abuse, anxiety, seizure disorder and COPD presents to the emergency department under Bal[place] act for the evaluation of suicidal ideation. According to ED documentation, the patient's mother stated that he woke up intoxicated and said that he did not want to live anymore and repeatedly stated he was going to commit suicide. The patient reportedly had 2 seizures in the emergency department. He is status post treatment with Ativan and Keppra and is currently postictal and sleeping. He does not awaken to answer any of my questions. Patient update on day of discharge: Follow-up visit EtOH, anxiety, COPD, seizure disorder. Patient seen and examined today. Reports he is weak. States that he has not been gotten out of bed for 4 days. States that he feels foggy because he has not walked around. But admits to walking towards the bathroom only. Patient was assisted to put on gown and walked in the unit. He is able to maintain his balance and stance. He denies any shortness of breath or dyspnea during walking. He denies any dizziness, headaches, chest pain. States he feels a lot better walking around. Discussed with patient plan to discharge him home. Discussed and counseled on alcohol abuse. Verbalized understanding. DS: Diagnosis - Discharge Diagnosis (1) Seizure Status: Acute (2) Alcohol abuse Status: Acute (3) Alcohol abuse with intoxication Status: Acute DS: Medications - Discharge Medications Prescriptions: multivitamin with folic acid [Thera] 1 tab PO DAILY #30 tab thiamine HCl (vitamin B1) 100 mg PO DAILY #30 tab DS: Summary Hospital Course: [id number] male with a past medical history significant for alcohol abuse, anxiety, seizure disorder and COPD presents to the emergency department under Bal[place] act for the evaluation of suicidal ideation. As per ED report, patient's mother stated that he woke up intoxicated and said that he did not want to live anymore and repeatedly stated he was going to commit suicide. Patient had 2 seizures at the emergency department. Status post treatment with Ativan and Keppra. Patient has known seizure disorder and has been followed by Dr. Rojas outpatient. He will continue to take his Keppra as ordered. He will follow-up with his neurologist in outpatient. Patient was also was intoxicated placed on [facility] for alcohol withdrawal. Ativan as needed. Seizure precaution was done. No seizure disorder after ED episode has been reported. Patient was seen by psychiatrist and lifted the Balbuena act. He is being followed by Dr. Barriga and outpatient as his psychiatrist and will continue to be followed. Patient has been counseled with drinking cessation. He was given multivitamin, thiamine that he will continue in the outpatient. Patient has history of COPD with no acute exacerbation during this hospitalization. Found to have elevated LFTs possibly secondary to alcohol and patient is also found to have thrombocytopenia possibly also secondary to alcohol use. Patient found to have elevated BPs during his stay possibly secondary to alcohol withdrawal he was given clonidine PRN. Patient is coherent , verbalized understanding of plan of treatment. He is able to ambulate in the unit without any difficulty and problems. Patient has met maximal benefits of hospitalization. Clinically stable for discharge. Patient was given potassium prior to discharge potassium is 3.4 - Time Spent with Patient Total time spent providing and/or coordinating discharge services: Less than 30 minutes - Quality: VTE Deep Vein Thrombosis/Pulmonary Embolism Present on Admission: No Exam Vital signs: Vital Signs 05/27/18 12:00 05/27/18 13:00 05/27/18 14:00 Temperature 98.3 F Pulse Rate 107 H 116 H 111 H Respiratory Rate 12 39 H 24 Blood Pressure 129/65 Pulse Oximetry 95 94 L 93 L 05/27/18 15:00 05/27/18 15:24 05/27/18 16:00 Temperature 98.2 F Pulse Rate 108 H 100 H 101 H Respiratory Rate 29 H 23 Blood Pressure 141/77 H 144/71 H Pulse Oximetry 94 L 94 L 05/27/18 18:00 05/27/18 19:00 05/27/18 20:00 Temperature 99.3 F Pulse Rate 89 83 Respiratory Rate 18 Blood Pressure 154/81 H Pulse Oximetry 97 95 05/27/18 22:00 05/28/18 00:00 05/28/18 02:00 Temperature 99.0 F Pulse Rate 82 89 83 Respiratory Rate 27 H Blood Pressure 166/81 H Pulse Oximetry 93 L 05/28/18 04:00 05/28/18 08:00 05/28/18 09:52 Temperature 98.6 F 98.2 F Pulse Rate 100 H 81 Respiratory Rate 18 18 Blood Pressure 146/82 H 157/78 H Pulse Oximetry 96 96 96 Intake & Output 05/27/18 05/28/18 05/28/18 18:59 06:59 18:59 Intake Total 2275 / 2275 Output Total 1550 / 1550 Balance 725 / 725 Weight 62.8 kg Intake: IV 1000 / 1000 Oral 1275 / 1275 Output: Urine 1550 / 1550 Other: # Voids 1 Date of Last Bowel Movement 05/27/18 05/27/18 05/28/18 # Bowel Movements 2 # Incontinent Bowel Movements 2 Narrative: GENERAL: This is a well-nourished, well-developed patient, in no apparent distress. SKIN: Warm and dry. Facial eczema continue with cortisone and outpatient HEENT: Normocephalic. Pupils equal round and reactive. Nose without bleeding. Airway patent. NECK: Trachea midline. CARDIOVASCULAR: Regular rate and rhythm without murmurs, gallops, or rubs. RESPIRATORY: Clear to auscultation. Breath sounds equal bilaterally. No wheezes , rales, or rhonchi. GASTROINTESTINAL: Abdomen soft, non-tender, nondistended. Bowel Sounds normoactive x4. MUSCULOSKELETAL: Extremities without clubbing, cyanosis, or edema. NEUROLOGICAL: Awake and alert. No focal neuro deficit. Moves all extremities. Normal speech. Results Procedures completed during hospitalization: None Labs on day of discharge: Labs from last 24 hours 05/28/18 05/28/18 05/28/18 06:57 06:57 02:15 WBC 7.9 RBC 4.32 L Hgb 14.0 Hct 40.1 MCV 93.0 MCH 32.3 MCHC 34.8 RDW 15.6 Plt Count 146 L D MPV 8.7 Neut % (Auto) 64.8 Lymph % (Auto) 22.1 [place] % (Auto) 9.8 H Eos % (Auto) 2.8 Baso % (Auto) 0.5 Neut # (Auto) 5.1 Lymph # (Auto) 1.7 [place] # (Auto) 0.8 Eos # (Auto) 0.2 Baso # (Auto) 0.0 WBC Differential . Differential Comment Auto diff final Sodium 137 Potassium 3.4 L Chloride 102 Carbon Dioxide 25.5 Anion Gap 10 BUN 14 Creatinine 0.78 Estimated GFR Greater than 89 Random Glucose 101 Calcium 9.6 D Total Bilirubin 1.0 AST 200 H ALT 237 H Alkaline Phosphatase 113 Total Protein 8.7 H D Albumin 4.0 Stl C.difficile DNA Amp Negative St C. diff Tox Epid 027 Negative - Impressions ITS Impressions Head CT 05/24/18 10:33 CONCLUSION: 1. Right-sided shunt. 2. Encephalomalacia right temporal and parietal lobes. 3. No acute intracranial abnormality. . Discharge Plan - Discharge Disposition Patient Disposition: 01 Discharge Home - Discharge Condition Condition: Stable - Discharge Order Discharge Orders: Discharge Order (Routine); Ordered 05/28/18 Ordered By: Tali Cowan - Physicians Team Primary Care Provider: UNKNOWN, Attending Provider: Fidel Elizalde Other Providers: Richard Looney MD
[2018-05-28] MEDS ORDERED: LORazepam 1 MG Tablet PO PRN (12:27)
[2018-05-28 12:39] VITALS: BP 115/62; PULSE 112; RESP 20; TEMP 98.1; O2SAT 93
== END 2018-05-28 13:12 | disposition home or self-care (01) ==
LOC: NEPD 09:34 → NEDA 23:53 → HIMC 05-25 01:40 → N05 05-28 03:58
PROVIDERS: ADMIT Hospitalist; ATTEND Hospitalist